=== PATIENT | male | born 1945 | race Caucasian/White ===

== ENCOUNTER 2016-12-21 10:13 | Day surgery (SDC) | payer OTHER ==
[~2016-12-21] VITALS: Ht 167.6 cm; Wt 104.3 kg
[~2016-12-21 10:13] MED LIST: AMLODIPINE BESYL5 MG PO; ASPIRIN EC325 MG PO; CARDIZEM CD,CA240 MG PO; ELIQUIS5 MG PO; HYDROCHLOROTHIA25 MG PO; LISINOPRIL40 MG PO; OMEPRAZOLE40 M1 PO; ROSUVASTATIN CA40 MG PO
[2016-12-21] MEDS ORDERED: TOPROL XL200 MG PO (10:43)
[2016-12-21] MEDS ORDERED: LASIX40 MG PO (13:04)
[2016-12-21] MEDS ORDERED: METOPROLOL SUC100 MG PO (13:40)
== END 2016-12-23 17:35 | disposition home or self-care (01) ==
LOC: CATH 10:13
DX: I25.10 Atherosclerotic heart disease of native coronary artery without angina pectoris (principal); R94.39 Abnormal result of other cardiovascular function study; R06.00 Dyspnea, unspecified; I48.91 Unspecified atrial fibrillation; E78.5 Hyperlipidemia, unspecified; I10 Essential (primary) hypertension; E11.9 Type 2 diabetes mellitus without complications; Z79.01 Long term (current) use of anticoagulants
CPT/HCPCS: 85347; C1769; C1887; J0153; J1644; J1940; J2250; J3010; J7050